=== PATIENT | male | born 1980 | race Caucasian/White ===

== ENCOUNTER → 2020-03-17 18:00 | Outpatient (BNVA) | payer SELFPAY | PROVIDERS: Visit Provider Nurse Practitioner Family | DX: M79.642 Pain in left hand (principal) | CPT/HCPCS: 73130 ==

== ENCOUNTER 2020-05-07 16:27 | Emergency (ER) | payer SELFPAY ==
[2020-05-07 16:29] VITALS: BP 154/121; PULSE 115; RESP 18; TEMP 36.9; O2SAT 99; BMI 21.2
[2020-05-07 16:38] VITALS: PULSE 116; RESP 18; O2SAT 99
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
--- NOTE | 2020-05-10 14:42 | PC.SOCIAL ---
Called and left a voicemail for the patient to call me back so I can set up a PCP with them.
== END 2020-05-07 17:04 | disposition home or self-care (01) ==
PROVIDERS: Emergency Provider Family Medicine
DX: S42.026A Nondisplaced fracture of shaft of unspecified clavicle, initial encounter for closed fracture (principal); S32.000A Wedge compression fracture of unspecified lumbar vertebra, initial encounter for closed fracture; Z76.0 Encounter for issue of repeat prescription; V19.40XA Pedal cycle driver injured in collision with unspecified motor vehicles in traffic accident, initial encounter; Z87.891 Personal history of nicotine dependence
CPT/HCPCS: 12345; 99281; 99282

== ENCOUNTER 2020-05-18 12:21 | Emergency (ER) | payer SELFPAY ==
[2020-05-18 12:32] VITALS: BP 115/80; PULSE 102; RESP 19; TEMP 36.8; O2SAT 96; BMI 21.8
[2020-05-18 12:37] VITALS: RESP 18
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
[2020-05-18] MEDS: HYDROcodone-acetaminophen 7.5-325 mg Tablet 1 TAB PO ×2 (13:11→14:29)
--- NOTE | 2020-05-18 13:50 | PC.NURSE ---
4 ofelia and 1 suture removed by this nurse per PA orders, patient tolerated well.
== END 2020-05-18 14:31 | disposition home or self-care (01) ==
PROVIDERS: Emergency Provider Physician Assistant
DX: S42.031A Displaced fracture of lateral end of right clavicle, initial encounter for closed fracture (principal); Z48.02 Encounter for removal of sutures; F17.210 Nicotine dependence, cigarettes, uncomplicated; X58.XXXA Exposure to other specified factors, initial encounter
CPT/HCPCS: 12345; 73030; 99281; 99283

== ENCOUNTER 2021-01-31 13:27 | Emergency (ER) | payer SELFPAY ==
[2021-01-31 13:42] VITALS: BP 118/78; PULSE 113; RESP 15; TEMP 36.3; O2SAT 97; BMI 21.1
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
[2021-01-31 15:41] VITALS: BP 118/84; PULSE 108; RESP 16; O2SAT 93
[2021-01-31] MEDS: ketorolac 60 mg/2 mL INJ IM (15:47)
[2021-01-31] MEDS: dexamethasone 10 mg/mL INJ 6 MG IM (15:48)
== END 2021-01-31 16:49 | disposition home or self-care (01) ==
PROVIDERS: Emergency Provider Physician Assistant
DX: S16.1XXA Strain of muscle, fascia and tendon at neck level, initial encounter (principal); F17.210 Nicotine dependence, cigarettes, uncomplicated; V19.9XXA Pedal cyclist (driver) (passenger) injured in unspecified traffic accident, initial encounter
CPT/HCPCS: 72125; 96372; 99283; J1100; J1885

== ENCOUNTER 2021-04-27 12:08 | Emergency (ER) | payer SELFPAY ==
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
[2021-04-27 12:49] VITALS: BP 140/98; PULSE 113; RESP 19; TEMP 37; O2SAT 96; BMI 21.7
--- NOTE | 2021-04-27 13:19 | XRR_ITS ---
PROCEDURE INFORMATION: Exam: XR Left Wrist Exam date and time: 04/27/2021 1:19 PM Age: 40 years old Clinical indication: Injury or trauma; Other: Laceration; Wrist; Left; Injury date: 04/27/21 TECHNIQUE: Imaging protocol: XR Left wrist. Views: 3 or more views. COMPARISON: CR XR hand LT min 3V* [id number] 03/17/2020 6:14 PM FINDINGS: Bones/joints: No acute fracture. No dislocation. Normal bone mineralization. No joint effusion. Joint spaces are maintained. Soft tissues: Mild soft tissue swelling medial to the wrist. No radiopaque foreign body. XR/XR wrist LT min 3V* [id number] IMPRESSION: 1. No acute fracture. Followup imaging recommended in 7-14 days if clinical concern for fracture persists. 2. Mild soft tissue swelling medial to the wrist.
[2021-04-27] MEDS: tetanus-diphtheria tox (adult) 0.5 mL SDV IM (13:59)
== END 2021-04-27 14:00 | disposition home or self-care (01) ==
PROVIDERS: Emergency Provider Physician Assistant
DX: S61.512A Laceration without foreign body of left wrist, initial encounter (principal); F17.200 Nicotine dependence, unspecified, uncomplicated; W26.8XXA Contact with other sharp object(s), not elsewhere classified, initial encounter
CPT/HCPCS: 12001; 73110; 90471; 90714; 99283

== ENCOUNTER 2023-01-01 20:18 | Emergency (ER) | payer MEDICAID, SELFPAY ==
[2023-01-01 20:19] VITALS: BP 138/94; PULSE 64; RESP 13; TEMP 36.6; O2SAT 100; BMI 20.5
[2023-01-01 20:31] VITALS: O2SAT 93
--- NOTE | 2023-01-01 20:40 | CTR_ITS ---
PROCEDURE INFORMATION: Exam: CT Head Without Contrast Exam date and time: 01/01/2023 8:50 PM Age: 42 years old Clinical indication: Injury or trauma and condition or disease; Blunt trauma (contusions or hematomas); Convulsions or seizures; Patient HX: Witnessed seizure from standing with fall. Stuck occiput on floor. ; Additional info: Seizure, head trauma TECHNIQUE: Imaging protocol: Computed tomography of the head without contrast. Radiation optimization: All CT scans at this facility use at least one of these dose optimization techniques: automated exposure control; mA and/or kV adjustment per patient size (includes targeted exams where dose is matched to clinical indication); or iterative reconstruction. REPORTING DATA: Count of CT and Cardiac NM exams in prior 12 months: This patient has received 0 known CTs and 0 known cardiac nuclear medicine studies in the 12 months prior to the current study. COMPARISON: CT cervical spin wo con* [id number] 01/31/2021 2:47 PM RADIATION DOSE METRICS: Total DLP (mGy-cm): 1175.94 FINDINGS: Brain: There is some encephalomalacia involving the posterior left temporal lobe.. No hemorrhage. Unremarkable white matter. No mass effect. Cerebral ventricles: No ventriculomegaly. Paranasal sinuses: Visualized sinuses are unremarkable. No fluid levels. Mastoid air cells: Visualized mastoid air cells are well aerated. Bones/joints: Unremarkable. No acute fracture. Soft tissues: Question small scalp contusion or hematoma in the right posterior parietal region.. CT/CT head wo con* [id number] IMPRESSION: No acute intracranial abnormality.
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
[2023-01-01 20:51] LABS: Basophils # 0.1 10^3/uL (0.0-0.1); Eosinophils # 0.3 10^3/uL (0.0-0.8); Hematocrit 40.3 % (42.0-52.0); Hemoglobin 13.3 g/dL (11.7-16.6); Lymphocytes # 2.3 10^3/uL (0.8-4.8); Lymphocytes % 29.9 %; Mean Corpuscular Hemoglobin 30.3 pg (28.0-34.0); Mean Corpuscular Volume 91.8 fl (80-94); Monocytes # 0.4 10^3/uL (0.2-0.9); Monocytes % 5.5 %; Neutrophils # 4.55 10^3/uL (1.8-7.7); Neutrophils % 59.3 %; Nucleated Red Blood Cells % 0 %; Platelet Count 213 10^3/cmm (130-400); Red Blood Count 4.39 10^6/uL (4.1-5.3); Red Cell Distribution Width 12.5 % (12.1-15.1); White Blood Count 7.7 10^3/uL (4.0-10.0)
[2023-01-01 21:09] LABS: Alanine Aminotransferase 35 U/L (0-41); Albumin Level 3.9 g/dL (3.5-5.2); Alkaline Phosphatase 73 U/L (40-130); Anion Gap 15.8 (5-19); Aspartate Amino Transferase 84 U/L (0-40); Blood Urea Nitrogen 13 mg/dL (6-20); Calcium 8.9 mg/dL (8.5-10.5); Carbon Dioxide 23 mmol/L (22-29); Chloride 104 mmol/L (98-107); Globulin 3.1 g/dL (1.3-4.6); Glomerular Filtration Rate 92.1 mL/min (90-130); Glucose 90 mg/dL (65-115); Magnesium 1.9 mg/dL (1.7-2.3); Osmolality Calculated 288 mOsm/kg (285-295); Potassium 3.8 mmol/L (3.5-5.1); Sodium 139 mmol/L (136-145); Total Bilirubin 0.2 mg/dL (0.15-1.2)
[2023-01-01] MEDS: acetaminophen 500 mg Tablet 1000 MG PO (21:10)
[2023-01-01 21:24] VITALS: BP 129/86; PULSE 71; RESP 16; O2SAT 93
[2023-01-01 21:32] LABS: Add Urine Microscopic? NO; Charge for UA Resulting for Rev
[2023-01-01 21:37] LABS: Bilirubin Urine Neg (Negative); Blood Urine Neg (Negative); Glucose Urine UA Norm (Normal); Ketones Urine 1+ (Negative); Leukocyte Esterase Urine Negative (Negative); Nitrate Urine Negative (Negative); Protein Urine Neg (Negative); Specific Gravity, Urine 1.005 (1.005-1.030); Urine Appearance Clear (CLEAR); Urine Color Yellow (Yellow); Urobilinogen Urine Norm (Negative); pH Urine 7 (5-7)
[2023-01-01 21:42] LABS: Amphetamines Screen Urine Negative (Negative); Barbiturates Screen Urine Negative (Negative); Benzodiazepines Screen Urine Negative (Negative); Cocaine Screen Urine Negative (Negative); Opiate Screen Urine Negative (Negative); PCP Screen Urine Negative (Negative); THC Screen Urine Negative (Negative)
[2023-01-01 21:43] LABS: Prolactin 35.84 ng/mL (4.0-15.2)
[2023-01-01 22:27] VITALS: BP 134/79; PULSE 60; RESP 16; O2SAT 94
== END 2023-01-01 22:28 | disposition home or self-care (01) ==
PROVIDERS: Emergency Provider Emergency Medicine
DX: G40.909 Epilepsy, unspecified, not intractable, without status epilepticus (principal); F17.210 Nicotine dependence, cigarettes, uncomplicated
CPT/HCPCS: 70450; 80053; 80306; 81003; 83735; 84146; 85025; 99284

== ENCOUNTER → 2024-10-18 17:53 | Outpatient (BNVA) | payer SELFPAY | DX: T33.532A Superficial frostbite of left finger(s), initial encounter; X31.XXXA Exposure to excessive natural cold, initial encounter | CPT/HCPCS: 73130 ==

== ENCOUNTER → 2025-01-07 14:34 | Outpatient (BNVA) | payer SELFPAY | PROVIDERS: PCP Family Medicine; Visit Provider Family Medicine | DX: Z13.6 Encounter for screening for cardiovascular disorders (principal) | CPT/HCPCS: 80053; 80061; 84439; 84443; 85025 ==

== ENCOUNTER 2025-01-28 08:57 | Outpatient (CLI) | payer MEDICAID, SELFPAY ==
--- NOTE | 2025-01-28 08:30 | FL_ITS ---
WS: [id number] Exam: FL barium swallow gastro [id number] Date/Time of Exam: 01/28/2025 9:03 AM Reason For Exam: DYSPHAGIA Fluoroscopy time: 2min [id number] minutes # of spot films: 6 Water-soluble esophagram was performed. Oral pharyngeal phase of swallowing was normal. No sign of aspiration. The esophagus is smooth in contour. No esophageal mass or stricture was noted. No gastroesophageal reflux identified. No hiatal hernia. Old appearing spinous process fractures of C7 and T1 noted. Moderate degenerative changes in the mid and lower cervical spine. FL/FL barium swallow gastro [id number] IMPRESSION: 1. Unremarkable water-soluble contrast esophagram. No mass, stricture or motili ty disorder identified.
== END 2025-01-28 08:58 | disposition home or self-care (01) ==
PROVIDERS: PCP Family Medicine; Visit Provider Family Medicine
DX: R13.10 Dysphagia, unspecified (principal); Z87.81 Personal history of (healed) traumatic fracture; M50.30 Other cervical disc degeneration, unspecified cervical region
CPT/HCPCS: 74220

== ENCOUNTER → 2025-06-22 13:15 | Outpatient (BNVA) | payer MEDICAID, SELFPAY | PROVIDERS: PCP Family Medicine; Visit Provider Family Medicine | DX: R07.9 Chest pain, unspecified (principal); Z87.898 Personal history of other specified conditions; F10.20 Alcohol dependence, uncomplicated; Z11.4 Encounter for screening for human immunodeficiency virus [HIV]; R79.89 Other specified abnormal findings of blood chemistry; Z11.59 Encounter for screening for other viral diseases | CPT/HCPCS: 80053; 80061; 82607; 84443; 85025; 86141; 86803; 87806 ==

== ENCOUNTER → 2025-06-24 04:17 | Outpatient (BNVA) | payer MEDICAID, SELFPAY | PROVIDERS: PCP Family Medicine; Visit Provider Family Medicine | DX: Z01.89 Encounter for other specified special examinations (principal) | CPT/HCPCS: 87522 ==